=== PATIENT | female | born 1960 | race Caucasian/White ===

== ENCOUNTER 2020-08-04 12:27 | Outpatient (CLI) | payer BC | END 2020-08-04 12:28 | disposition home or self-care (01) | LOC: CSHMRI 12:27 | PROVIDERS: ATTEND Family Medicine | DX: M79.671 Pain in right foot (principal); M72.2 Plantar fascial fibromatosis; S96.811A Strain of other specified muscles and tendons at ankle and foot level, right foot, initial encounter ==

== ENCOUNTER 2020-12-11 13:28 | Outpatient (CLI) | payer BC | END 2020-12-11 13:29 | disposition home or self-care (01) | LOC: CSHRAD 13:28 | PROVIDERS: ATTEND Family Medicine | DX: R05 Cough (principal) | CPT/HCPCS: 71046 ==

== ENCOUNTER 2022-01-27 10:36 | Outpatient (CLI) | payer BC | END 2022-01-27 10:37 | disposition home or self-care (01) | LOC: CSHMRI 10:36 | PROVIDERS: ATTEND Family Medicine | DX: M79.672 Pain in left foot (principal); M72.2 Plantar fascial fibromatosis ==

== ENCOUNTER 2023-02-16 11:38 | Outpatient (CLI) | payer OTHER, BC | END 2023-02-16 11:39 | disposition home or self-care (01) | LOC: CSHRAD 11:38 | PROVIDERS: ATTEND Chiropractor | DX: M54.2 Cervicalgia (principal); M54.50 Low back pain, unspecified; V49.40XS Driver injured in collision with unspecified motor vehicles in traffic accident, sequela; M47.816 Spondylosis without myelopathy or radiculopathy, lumbar region; M43.16 Spondylolisthesis, lumbar region; Z98.890 Other specified postprocedural states; M47.812 Spondylosis without myelopathy or radiculopathy, cervical region | CPT/HCPCS: 72040; 72100 ==

== ENCOUNTER 2023-10-19 10:46 | Outpatient (CLI) | payer BC | END 2023-10-19 10:47 | disposition home or self-care (01) | LOC: CSHMAMMO 10:46 | PROVIDERS: ATTEND Family Medicine | DX: Z13.820 Encounter for screening for osteoporosis (principal); M85.851 Other specified disorders of bone density and structure, right thigh; M85.852 Other specified disorders of bone density and structure, left thigh | CPT/HCPCS: 77080 ==

== ENCOUNTER 2025-01-29 12:27 | Outpatient (CLI) | payer BC | END 2025-01-29 12:28 | disposition home or self-care (01) | LOC: CSHRAD 12:27 | PROVIDERS: ATTEND Family Medicine | DX: M54.50 Low back pain, unspecified (principal); M47.814 Spondylosis without myelopathy or radiculopathy, thoracic region; M43.16 Spondylolisthesis, lumbar region; M47.816 Spondylosis without myelopathy or radiculopathy, lumbar region; M47.817 Spondylosis without myelopathy or radiculopathy, lumbosacral region | CPT/HCPCS: 72072; 72100 ==

== ENCOUNTER 2025-02-14 13:54 | Outpatient (CLI) | payer BC | END 2025-02-14 13:55 | disposition home or self-care (01) | LOC: CSHMRI 13:54 | PROVIDERS: ATTEND Family Medicine | DX: M54.50 Low back pain, unspecified (principal); M48.061 Spinal stenosis, lumbar region without neurogenic claudication; M48.07 Spinal stenosis, lumbosacral region | CPT/HCPCS: 72148 ==